=== PATIENT | male | born 1975 | race Caucasian/White ===

== ENCOUNTER 2019-03-12 10:52 | Emergency (ER) | payer OTHER, SELFPAY ==
[2019-03-12 11:08] VITALS: BP 141/90; PULSE 70; RESP 18; TEMP 36.1; O2SAT 99; BMI 25.4
--- NOTE | 2019-03-12 11:43 | ED.BACK ---
HPI - Back Pain/Injury <VITALY Mak - Last Filed: 03/12/19 13:33> General Chief Complaint: Back Pain/Injury Stated Complaint: back pain Time Seen by Provider: 03/12/19 11:25 Source: patient Mode of arrival: ambulatory Limitations: no limitations History of Present Illness HPI Narrative: The patient is a 44-year-old male former smoker with history of flank pain who presents with a chief complaint of right-sided low back pain. He has a history of right-sided flank pain, and has been worked up by her urologist for possible kidney stones. However no kidney stones have been found. He states that his back pain started while putting on his pants yesterday. He states he was digging holes in the ground the day before. He states that his pain is improved with positioning and rest, not constant. He had an ER physician friend, who is not his primary care provider prescribed him Flexeril as a favor. He took 1 dose of that yesterday along with 800 of ibuprofen and felt no relief. He has not taken anything today. He denies any neck pain or spinal pain. He denies any incontinence of bowel, incontinence of bladder numbness tingling or weakness. He denies any fevers, trauma or history of cancer. The patient denies any dysuria urgency or frequency or hematuria. Related Data Home Medications Medication Instructions Recorded Confirmed cyclobenzaprine 10 mg PO TID PRN 03/12/19 03/12/19 ibuprofen 1 dose PO PRN PRN 03/12/19 03/12/19 multivitamin 1 tab PO DAILY 03/12/19 03/12/19 Previous Rx's Medication Instructions Recorded hydrocodone-acetaminophen [[place]] 1 tab PO Q4-6H PRN #10 tab 03/12/19 ketorolac 10 mg PO TID PRN #14 tab 03/12/19 Allergies Allergy/AdvReac Type Severity Reaction Status Date / Time No Known Drug Allergies Allergy Verified 03/12/19 11:49 Review of Systems <VITALY Mak - Last Filed: 03/12/19 13:33> Review of Systems GENERAL: Denies chills, fatigue, malaise, fever, sweats. HEENT: Denies sinus pain, ear pain, sore throat, difficulty swallowing, dizziness. RESPIRATORY: Denies dyspnea, cough, wheezing, hemoptysis, sputum. CARDIOVASCULAR: Denies chest pain, palpitations, orthopnea, edema, GASTROINTESTINAL: Denies nausea, vomiting, abdominal pain, diarrhea, constipation, melena. : see HPI MUSCULOSKELETAL: See HPI SKIN: Denies rash, skin lesions, or other NEUROLOGIC: Denies weakness, headache, numbness, change in speech, confusion, seizures, incoordination. PSYCHIATRIC: No concerning psychosocial issues. 12 point review of systems is negative except for those stated above PFSH <Candace BALBIR De Anda- - Last Filed: 03/12/19 13:33> Social History Smoking Status: Former smoker Social History Smoking Status: Former smoker Exam <CandaceFARA Thomason - Last Filed: 03/12/19 13:33> Narrative Exam Narrative: GENERAL: This is a well-nourished, well-developed patient, appears uncomfortable moving HEAD: Atraumatic. Normocephalic. No temporal or scalp tenderness. EYES: Pupils equal round and reactive. Extraocular motions intact. No scleral icterus. No injection or drainage. ENT: Nose without bleeding, purulent drainage or septal hematoma. Throat without erythema, tonsillar hypertrophy or exudate. Uvula midline. Airway patent. NECK: Trachea midline. No JVD or lymphadenopathy. Supple, nontender, no meningeal signs. CARDIOVASCULAR: Regular rate and rhythm without murmurs, gallops, or rubs. RESPIRATORY: Clear to auscultation. Breath sounds equal bilaterally. No wheezes, rales, or rhonchi. No cough. No increased respiratory effort. No accessory muscle use. GASTROINTESTINAL: Abdomen soft, non-tender, nondistended. No hepato-splenomegaly, or palpable masses. No guarding. EXTREMITIES: No clubbing, cyanosis, or edema. No joint tenderness, effusion, or edema noted. BACK: Nontender without deformity or crepitance. No flank tenderness. No pain to C-spine T-spine or L-spine palpation. Pain to right lumbar paraspinal muscle palpation. NEURO: AOx3. Strength is equal upper and lower extremities bilaterally. No gross cranial nerve deficit. SKIN: No rash or erythema. Initial Vital Signs Initial Vital Signs: Vital Signs Temperature 97.0 F L 03/12/19 11:08 Pulse Rate 70 03/12/19 11:08 Respiratory Rate 18 03/12/19 11:08 Blood Pressure 141/90 H 03/12/19 11:08 Pulse Oximetry 99 03/12/19 11:08 <Bridgette Ortiz MD - Last Filed: 03/12/19 19:20> Initial Vital Signs Initial Vital Signs: Vital Signs Temperature 97.0 F L 03/12/19 11:08 Pulse Rate 70 03/12/19 11:08 Respiratory Rate 18 03/12/19 11:08 Blood Pressure 141/90 H 03/12/19 11:08 Pulse Oximetry 99 03/12/19 11:08 Course <BALBIR Mak-BC - Last Filed: 03/12/19 13:33> Course Narrative: At 11:50 a.m. I reviewed the patient's imaging reports from [facility]. He had a CT IVP with and without contrast was done at [facility], which illustrate no acute intra-abdominal process, no evidence of nephrolithiasis or hydronephrosis, and slight diffuse bladder wall thickening. Orders Ordered: ED Orders 03/12/19 12:12 Complete Blood Count AUTO DIFF Stat Comprehensive Metabolic Panel Stat 03/12/19 12:20 Urinalysis and Microscopic Stat Discontinued Medications Hydrocodone Bitart/Acetaminophen ([place] 5/325) 1 tab PO NOW ONE Stop: 03/12/19 12:41 Last Admin: 03/12/19 13:01 Dose: 1 tab Cyclobenzaprine HCl (Flexeril) 10 mg PO NOW ONE Stop: 03/12/19 11:36 Last Admin: 03/12/19 11:51 Dose: 10 mg Ketorolac Tromethamine (Toradol) 60 mg IM NOW ONE Stop: 03/12/19 11:36 Last Admin: 03/12/19 11:51 Dose: 60 mg Vital Signs - 8 hr 03/12/19 13:29 Temperature 98.0 F Pulse Rate 65 Blood Pressure [Right Arm] 127/85 Pulse Oximetry 100 <Bridgette Ortiz MD - Last Filed: 03/12/19 19:20> Orders Ordered: ED Orders 03/12/19 12:12 Complete Blood Count AUTO DIFF Stat Comprehensive Metabolic Panel Stat 03/12/19 12:20 Urinalysis and Microscopic Stat Discontinued Medications Hydrocodone Bitart/Acetaminophen ([place] 5/325) 1 tab PO NOW ONE Stop: 03/12/19 12:41 Last Admin: 03/12/19 13:01 Dose: 1 tab Cyclobenzaprine HCl (Flexeril) 10 mg PO NOW ONE Stop: 03/12/19 11:36 Last Admin: 03/12/19 11:51 Dose: 10 mg Ketorolac Tromethamine (Toradol) 60 mg IM NOW ONE Stop: 03/12/19 11:36 Last Admin: 03/12/19 11:51 Dose: 60 mg Vital Signs - 8 hr 03/12/19 13:29 Temperature 98.0 F Pulse Rate 65 Blood Pressure [Right Arm] 127/85 Pulse Oximetry 100 MDM - Back Pain/Injury <Candace De Anda, [employer]- - Last Filed: 03/12/19 13:33> Lab Data Result diagrams: 03/12/19 12:12 03/12/19 12:12 Lab Results 03/12/19 03/12/19 03/12/19 Range/Units 12:12 12:12 12:20 WBC 6.5 (4.5-11.0) X10^3/uL RBC 4.62 (4.5-5.9) X10^6/uL Hgb 15.4 (13.5-17.5) g/dL Hct 45.0 (41-53) % MCV 97.4 (80-100) fL MCH 33.4 (26-34) PG MCHC 34.3 (30-36) % RDW 12.6 (11.6-14.8) % Plt Count 225 (150-400) X10^3/uL Neut % (Auto) 65.7 (50-75) % Lymph % (Auto) 23.0 L (25-40) % [place] % (Auto) 9.3 (3-14) % Eos % (Auto) 1.3 L (2-4) % Baso % (Auto) 0.7 (0-2) % Neut # (Auto) 4300 (6363-8273) /uL Lymph # (Auto) 1500 (3622-6931) /uL [place] # (Auto) 600 (0-900) /uL Eos # (Auto) 100 (0-450) /uL Baso # (Auto) 0 (0-100) /uL Sodium 142 (137-145) mmol/L Potassium 4.0 (3.4-5.1) mmol/L Chloride 104 (98-107) mmol/L Carbon Dioxide 27 (22-32) mmol/L BUN 14 (9-20) mg/dL Creatinine 0.80 (0.66-1.25) mg/dL Estimated GFR > 60.0 (>60) mL/min BUN/Creatinine Ratio 17.5 (6-22) Glucose 96 (70-100) mg/dL Calcium 9.8 (8.4-10.2) mg/dL Total Bilirubin 0.8 (0.2-1.3) mg/dL AST 29 (17-59) IU/L ALT 17 L (21-72) IU/L Alkaline Phosphatase 49 (38-126) U/L Total Protein 8.3 H (6.3-8.2) g/dL Albumin 4.9 (3.5-5.0) g/dL Globulin 3.4 (1.7-4.1) g/dL Albumin/Globulin Ratio 1.4 (1.0-2.8) Urine Color Yellow Urine Appearance Clear Urine pH 6.0 (4.5-8.0) Ur Specific [place] 1.015 (1.000-1.035) Urine Protein Negative (Negative) Urine Glucose (UA) Negative (Negative) g/dL Urine Ketones Negative (NEGATIVE) Urine Occult Blood Negative (Negative) Urine Nitrate Negative (Negative) Urine Bilirubin Negative (NEGATIVE) Urine Urobilinogen 0.2 (0.2) E.U./dL Ur Leukocyte Esterase Negative (NEGATIVE) Urine RBC None seen (0-5/HPF) Urine WBC 0-1/hpf (0-5/HPF) Ur Squamous Epith Cells 0-1 /hpf (0-5/HPF) Amorphous Sediment 1+ Urine Bacteria None seen (None) Ur Culture Indicated? Cult not indicated MDM Narrative Medical decision making narrative: The patient is a 44-year-old male who presents with right flank pain after digging holes 2 days ago and pulling up his pants yesterday. He took a single dose of ibuprofen and Flexeril at home, which did not relieve his pain. He is also concerned about possible kidney stones. However he is able to be comfortable when he is lying flat on his back and his pain is worsened by movement. His kidney function is normal, he has no signs of nephrolithiasis in his urinalysis. His pain was greatly relieved by medications. We elected to not repeat his CT scan that was just recently performed. His pain significantly decreased of a single dose of Toradol, so I gave him a prescription and discussed not combine it with any other anti-inflammatories or NSAIDs. I also did give him a small prescription of [place], with understanding that can be constipating and sedating. Discussed not doing any driving or serious work on it. Patient declined a work note at this time. I did discuss at length follow up with PCP. This pain at this point this consistent with musculoskeletal pain. I discussed coming back to the ER for any incontinence of bowel, incontinence of bladder or numbness. Discussed at length follow up with PCP. Patient has no questions or concerns upon discharge. <Bridgette Ortiz MD - Last Filed: 03/12/19 19:20> Lab Data Lab Results 03/12/19 03/12/19 03/12/19 Range/Units 12:12 12:12 12:20 WBC 6.5 (4.5-11.0) X10^3/uL RBC 4.62 (4.5-5.9) X10^6/uL Hgb 15.4 (13.5-17.5) g/dL Hct 45.0 (41-53) % MCV 97.4 (80-100) fL MCH 33.4 (26-34) PG MCHC 34.3 (30-36) % RDW 12.6 (11.6-14.8) % Plt Count 225 (150-400) X10^3/uL Neut % (Auto) 65.7 (50-75) % Lymph % (Auto) 23.0 L (25-40) % [place] % (Auto) 9.3 (3-14) % Eos % (Auto) 1.3 L (2-4) % Baso % (Auto) 0.7 (0-2) % Neut # (Auto) 4300 (7194-3296) /uL Lymph # (Auto) 1500 (8853-7758) /uL [place] # (Auto) 600 (0-900) /uL Eos # (Auto) 100 (0-450) /uL Baso # (Auto) 0 (0-100) /uL Sodium 142 (137-145) mmol/L Potassium 4.0 (3.4-5.1) mmol/L Chloride 104 (98-107) mmol/L Carbon Dioxide 27 (22-32) mmol/L BUN 14 (9-20) mg/dL Creatinine 0.80 (0.66-1.25) mg/dL Estimated GFR > 60.0 (>60) mL/min BUN/Creatinine Ratio 17.5 (6-22) Glucose 96 (70-100) mg/dL Calcium 9.8 (8.4-10.2) mg/dL Total Bilirubin 0.8 (0.2-1.3) mg/dL AST 29 (17-59) IU/L ALT 17 L (21-72) IU/L Alkaline Phosphatase 49 (38-126) U/L Total Protein 8.3 H (6.3-8.2) g/dL Albumin 4.9 (3.5-5.0) g/dL Globulin 3.4 (1.7-4.1) g/dL Albumin/Globulin Ratio 1.4 (1.0-2.8) Urine Color Yellow Urine Appearance Clear Urine pH 6.0 (4.5-8.0) Ur Specific [place] 1.015 (1.000-1.035) Urine Protein Negative (Negative) Urine Glucose (UA) Negative (Negative) g/dL Urine Ketones Negative (NEGATIVE) Urine Occult Blood Negative (Negative) Urine Nitrate Negative (Negative) Urine Bilirubin Negative (NEGATIVE) Urine Urobilinogen 0.2 (0.2) E.U./dL Ur Leukocyte Esterase Negative (NEGATIVE) Urine RBC None seen (0-5/HPF) Urine WBC 0-1/hpf (0-5/HPF) Ur Squamous Epith Cells 0-1 /hpf (0-5/HPF) Amorphous Sediment 1+ Urine Bacteria None seen (None) Ur Culture Indicated? Cult not indicated Discharge Plan Departure Patient Disposition: Home Clinical Impression: Muscle spasm Strain of lumbar region Qualifiers: Encounter type: initial encounter Qualified Code(s): S39.012A - Strain of muscle, fascia and tendon of lower back, initial encounter Back pain Qualifiers: Back pain location: low back pain Chronicity: acute Back pain laterality: right Sciatica presence: without sciatica Qualified Code(s): M54.5 - Low back pain Discharge Date/Time: 03/12/19 13:43 Interventions: ED Discharge Assessment Last Done: 03/12/19 13:42 Activity Restrictions/Additional Instructions: Please follow up with your primary care provider in the next few days. Your lab work shows normal kidney function, your urine has no blood or signs of infection, and your white blood cell count is not elevated. This is all very reassuring. Please monitor for any acute changes such as incontinence of bowel, incontinence of bladder or numbness and be evaluated if these occur. Please use the medications as we discussed. Do not combine the Toradol/ketorolac with any NSAIDs such as ibuprofen or Aleve. Be aware that [place] can be constipating and sedating. Please come back to the emergency department for any acute concerns. Please follow up with your PCP as soon as possible Prescriptions: New hydrocodone-acetaminophen [[place]] 5-325 mg tablet 1 tab PO Q4-6H PRN (Reason: pain) Qty: 10 RF: 0 ketorolac 10 mg tablet 10 mg PO TID PRN (Reason: pain) Qty: 14 RF: 0 No Action multivitamin Tablet 1 tab PO DAILY RF: 0 cyclobenzaprine 10 mg Tablet 10 mg PO TID PRN (Reason: Spasms) RF: 0 ibuprofen 200 mg Tablet 1 dose PO PRN PRN (Reason: pain) RF: 0 Referrals: Keith Chang MD [Primary Care Provider] -
--- NOTE | 2019-03-12 11:47 | ED_ITS ---
HPI - Back Pain/Injury <VITALY Mak - Last Filed: 03/12/19 13:33> General Chief Complaint: Back Pain/Injury Stated Complaint: back pain Time Seen by Provider: 03/12/19 11:25 Source: patient Mode of arrival: ambulatory Limitations: no limitations History of Present Illness HPI Narrative: The patient is a 44-year-old male former smoker with history of flank pain who presents with a chief complaint of right-sided low back pain. He has a history of right-sided flank pain, and has been worked up by her urologist for possible kidney stones. However no kidney stones have been found. He states that his back pain started while putting on his pants yesterday. He states he was digging holes in the ground the day before. He states that his pain is improved with positioning and rest, not constant. He had an ER physician friend, who is not his primary care provider prescribed him Flexeril as a favor. He took 1 dose of that yesterday along with 800 of ibuprofen and felt no relief. He has not taken anything today. He denies any neck pain or spinal pain. He denies any incontinence of bowel, incontinence of bladder numbness tingling or weakness. He denies any fevers, trauma or history of cancer. The patient denies any dysuria urgency or frequency or hematuria. Related Data Home Medications Medication Instructions Recorded Confirmed cyclobenzaprine 10 mg PO TID PRN 03/12/19 03/12/19 ibuprofen 1 dose PO PRN PRN 03/12/19 03/12/19 multivitamin 1 tab PO DAILY 03/12/19 03/12/19 Previous Rx's Medication Instructions Recorded hydrocodone-acetaminophen [[place]] 1 tab PO Q4-6H PRN #10 tab 03/12/19 ketorolac 10 mg PO TID PRN #14 tab 03/12/19 Allergies Allergy/AdvReac Type Severity Reaction Status Date / Time No Known Drug Allergies Allergy Verified 03/12/19 11:49 Review of Systems <VITALY Mak - Last Filed: 03/12/19 13:33> Review of Systems GENERAL: Denies chills, fatigue, malaise, fever, sweats. HEENT: Denies sinus pain, ear pain, sore throat, difficulty swallowing, dizziness. RESPIRATORY: Denies dyspnea, cough, wheezing, hemoptysis, sputum. CARDIOVASCULAR: Denies chest pain, palpitations, orthopnea, edema, GASTROINTESTINAL: Denies nausea, vomiting, abdominal pain, diarrhea, constipation, melena. : see HPI MUSCULOSKELETAL: See HPI SKIN: Denies rash, skin lesions, or other NEUROLOGIC: Denies weakness, headache, numbness, change in speech, confusion, seizures, incoordination. PSYCHIATRIC: No concerning psychosocial issues. 12 point review of systems is negative except for those stated above PFSH <Candace BALBIR De Anda- - Last Filed: 03/12/19 13:33> Social History Smoking Status: Former smoker Social History Smoking Status: Former smoker Exam <CandaceFARA Thomason - Last Filed: 03/12/19 13:33> Narrative Exam Narrative: GENERAL: This is a well-nourished, well-developed patient, appears uncomfortable moving HEAD: Atraumatic. Normocephalic. No temporal or scalp tenderness. EYES: Pupils equal round and reactive. Extraocular motions intact. No scleral icterus. No injection or drainage. ENT: Nose without bleeding, purulent drainage or septal hematoma. Throat without erythema, tonsillar hypertrophy or exudate. Uvula midline. Airway patent. NECK: Trachea midline. No JVD or lymphadenopathy. Supple, nontender, no meningeal signs. CARDIOVASCULAR: Regular rate and rhythm without murmurs, gallops, or rubs. RESPIRATORY: Clear to auscultation. Breath sounds equal bilaterally. No wheezes, rales, or rhonchi. No cough. No increased respiratory effort. No accessory muscle use. GASTROINTESTINAL: Abdomen soft, non-tender, nondistended. No hepato- splenomegaly, or palpable masses. No guarding. EXTREMITIES: No clubbing, cyanosis, or edema. No joint tenderness, effusion, or edema noted. BACK: Nontender without deformity or crepitance. No flank tenderness. No pain to C-spine T-spine or L-spine palpation. Pain to right lumbar paraspinal muscle palpation. NEURO: AOx3. Strength is equal upper and lower extremities bilaterally. No gross cranial nerve deficit. SKIN: No rash or erythema. Initial Vital Signs Initial Vital Signs: Vital Signs Temperature 97.0 F L 03/12/19 11:08 Pulse Rate 70 03/12/19 11:08 Respiratory Rate 18 03/12/19 11:08 Blood Pressure 141/90 H 03/12/19 11:08 Pulse Oximetry 99 03/12/19 11:08 <Bridgette Ortiz MD - Last Filed: 03/12/19 19:20> Initial Vital Signs Initial Vital Signs: Vital Signs Temperature 97.0 F L 03/12/19 11:08 Pulse Rate 70 03/12/19 11:08 Respiratory Rate 18 03/12/19 11:08 Blood Pressure 141/90 H 03/12/19 11:08 Pulse Oximetry 99 03/12/19 11:08 Course <BALBIR Mak-BC - Last Filed: 03/12/19 13:33> Course Narrative: At 11:50 a.m. I reviewed the patient's imaging reports from [facility]. He had a CT IVP with and without contrast was done at [facility], which illustrate no acute intra-abdominal process, no evidence of nephrolithiasis or hydronephrosis, and slight diffuse bladder wall thickening. Orders Ordered: ED Orders 03/12/19 12:12 Complete Blood Count AUTO DIFF Stat Comprehensive Metabolic Panel Stat 03/12/19 12:20 Urinalysis and Microscopic Stat Discontinued Medications Hydrocodone Bitart/Acetaminophen ([place] 5/325) 1 tab PO NOW ONE Stop: 03/12/19 12:41 Last Admin: 03/12/19 13:01 Dose: 1 tab Cyclobenzaprine HCl (Flexeril) 10 mg PO NOW ONE Stop: 03/12/19 11:36 Last Admin: 03/12/19 11:51 Dose: 10 mg Ketorolac Tromethamine (Toradol) 60 mg IM NOW ONE Stop: 03/12/19 11:36 Last Admin: 03/12/19 11:51 Dose: 60 mg Vital Signs - 8 hr 03/12/19 13:29 Temperature 98.0 F Pulse Rate 65 Blood Pressure [Right Arm] 127/85 Pulse Oximetry 100 <Bridgette Ortiz MD - Last Filed: 03/12/19 19:20> Orders Ordered: ED Orders 03/12/19 12:12 Complete Blood Count AUTO DIFF Stat Comprehensive Metabolic Panel Stat 03/12/19 12:20 Urinalysis and Microscopic Stat Discontinued Medications Hydrocodone Bitart/Acetaminophen ([place] 5/325) 1 tab PO NOW ONE Stop: 03/12/19 12:41 Last Admin: 03/12/19 13:01 Dose: 1 tab Cyclobenzaprine HCl (Flexeril) 10 mg PO NOW ONE Stop: 03/12/19 11:36 Last Admin: 03/12/19 11:51 Dose: 10 mg Ketorolac Tromethamine (Toradol) 60 mg IM NOW ONE Stop: 03/12/19 11:36 Last Admin: 03/12/19 11:51 Dose: 60 mg Vital Signs - 8 hr 03/12/19 13:29 Temperature 98.0 F Pulse Rate 65 Blood Pressure [Right Arm] 127/85 Pulse Oximetry 100 MDM - Back Pain/Injury <Candace De Anda, [employer]CH[employer] ASSISTANT- - Last Filed: 03/12/19 13:33> Lab Data Result diagrams: 03/12/19 12:12 03/12/19 12:12 Lab Results 03/12/19 03/12/19 03/12/19 Range/Units 12:12 12:12 12:20 WBC 6.5 (4.5-11.0) X10^3/uL RBC 4.62 (4.5-5.9) X10^6/uL Hgb 15.4 (13.5-17.5) g/dL Hct 45.0 (41-53) % MCV 97.4 (80-100) fL MCH 33.4 (26-34) PG MCHC 34.3 (30-36) % RDW 12.6 (11.6-14.8) % Plt Count 225 (150-400) X10^3/uL Neut % (Auto) 65.7 (50-75) % Lymph % (Auto) 23.0 L (25-40) % [place] % (Auto) 9.3 (3-14) % Eos % (Auto) 1.3 L (2-4) % Baso % (Auto) 0.7 (0-2) % Neut # (Auto) 4300 (0915-5788) /uL Lymph # (Auto) 1500 (3843-6023) /uL [place] # (Auto) 600 (0-900) /uL Eos # (Auto) 100 (0-450) /uL Baso # (Auto) 0 (0-100) /uL Sodium 142 (137-145) mmol/L Potassium 4.0 (3.4-5.1) mmol/L Chloride 104 (98-107) mmol/L Carbon Dioxide 27 (22-32) mmol/L BUN 14 (9-20) mg/dL Creatinine 0.80 (0.66-1.25) mg/dL Estimated GFR > 60.0 (>60) mL/min BUN/Creatinine Ratio 17.5 (6-22) Glucose 96 (70-100) mg/dL Calcium 9.8 (8.4-10.2) mg/dL Total Bilirubin 0.8 (0.2-1.3) mg/dL AST 29 (17-59) IU/L ALT 17 L (21-72) IU/L Alkaline Phosphatase 49 (38-126) U/L Total Protein 8.3 H (6.3-8.2) g/dL Albumin 4.9 (3.5-5.0) g/dL Globulin 3.4 (1.7-4.1) g/dL Albumin/Globulin Ratio 1.4 (1.0-2.8) Urine Color Yellow Urine Appearance Clear Urine pH 6.0 (4.5-8.0) Ur Specific [place] 1.015 (1.000-1.035) Urine Protein Negative (Negative) Urine Glucose (UA) Negative (Negative) g/dL Urine Ketones Negative (NEGATIVE) Urine Occult Blood Negative (Negative) Urine Nitrate Negative (Negative) Urine Bilirubin Negative (NEGATIVE) Urine Urobilinogen 0.2 (0.2) E.U./dL Ur Leukocyte Esterase Negative (NEGATIVE) Urine RBC None seen (0-5/HPF) Urine WBC 0-1/hpf (0-5/HPF) Ur Squamous Epith Cells 0-1 /hpf (0-5/HPF) Amorphous Sediment 1+ Urine Bacteria None seen (None) Ur Culture Indicated? Cult not indicated MDM Narrative Medical decision making narrative: The patient is a 44-year-old male who presents with right flank pain after digging holes 2 days ago and pulling up his pants yesterday. He took a single dose of ibuprofen and Flexeril at home, which did not relieve his pain. He is also concerned about possible kidney stones. However he is able to be comfortable when he is lying flat on his back and his pain is worsened by movement. His kidney function is normal, he has no signs of nephrolithiasis in his urinalysis. His pain was greatly relieved by medications. We elected to not repeat his CT scan that was just recently performed. His pain significantly decreased of a single dose of Toradol, so I gave him a prescription and discussed not combine it with any other anti- inflammatories or NSAIDs. I also did give him a small prescription of [place], with understanding that can be constipating and sedating. Discussed not doing any driving or serious work on it. Patient declined a work note at this time. I did discuss at length follow up with PCP. This pain at this point this consistent with musculoskeletal pain. I discussed coming back to the ER for any incontinence of bowel, incontinence of bladder or numbness. Discussed at length follow up with PCP. Patient has no questions or concerns upon discharge. <Bridgette Ortiz MD - Last Filed: 03/12/19 19:20> Lab Data Lab Results 03/12/19 03/12/19 03/12/19 Range/Units 12:12 12:12 12:20 WBC 6.5 (4.5-11.0) X10^3/uL RBC 4.62 (4.5-5.9) X10^6/uL Hgb 15.4 (13.5-17.5) g/dL Hct 45.0 (41-53) % MCV 97.4 (80-100) fL MCH 33.4 (26-34) PG MCHC 34.3 (30-36) % RDW 12.6 (11.6-14.8) % Plt Count 225 (150-400) X10^3/uL Neut % (Auto) 65.7 (50-75) % Lymph % (Auto) 23.0 L (25-40) % [place] % (Auto) 9.3 (3-14) % Eos % (Auto) 1.3 L (2-4) % Baso % (Auto) 0.7 (0-2) % Neut # (Auto) 4300 (4250-4769) /uL Lymph # (Auto) 1500 (2605-0612) /uL [place] # (Auto) 600 (0-900) /uL Eos # (Auto) 100 (0-450) /uL Baso # (Auto) 0 (0-100) /uL Sodium 142 (137-145) mmol/L Potassium 4.0 (3.4-5.1) mmol/L Chloride 104 (98-107) mmol/L Carbon Dioxide 27 (22-32) mmol/L BUN 14 (9-20) mg/dL Creatinine 0.80 (0.66-1.25) mg/dL Estimated GFR > 60.0 (>60) mL/min BUN/Creatinine Ratio 17.5 (6-22) Glucose 96 (70-100) mg/dL Calcium 9.8 (8.4-10.2) mg/dL Total Bilirubin 0.8 (0.2-1.3) mg/dL AST 29 (17-59) IU/L ALT 17 L (21-72) IU/L Alkaline Phosphatase 49 (38-126) U/L Total Protein 8.3 H (6.3-8.2) g/dL Albumin 4.9 (3.5-5.0) g/dL Globulin 3.4 (1.7-4.1) g/dL Albumin/Globulin Ratio 1.4 (1.0-2.8) Urine Color Yellow Urine Appearance Clear Urine pH 6.0 (4.5-8.0) Ur Specific [place] 1.015 (1.000-1.035) Urine Protein Negative (Negative) Urine Glucose (UA) Negative (Negative) g/dL Urine Ketones Negative (NEGATIVE) Urine Occult Blood Negative (Negative) Urine Nitrate Negative (Negative) Urine Bilirubin Negative (NEGATIVE) Urine Urobilinogen 0.2 (0.2) E.U./dL Ur Leukocyte Esterase Negative (NEGATIVE) Urine RBC None seen (0-5/HPF) Urine WBC 0-1/hpf (0-5/HPF) Ur Squamous Epith Cells 0-1 /hpf (0-5/HPF) Amorphous Sediment 1+ Urine Bacteria None seen (None) Ur Culture Indicated? Cult not indicated Discharge Plan Departure Patient Disposition: Home Clinical Impression: Muscle spasm Strain of lumbar region Qualifiers: Encounter type: initial encounter Qualified Code(s): S39.012A - Strain of muscle, fascia and tendon of lower back, initial encounter Back pain Qualifiers: Back pain location: low back pain Chronicity: acute Back pain laterality: right Sciatica presence: without sciatica Qualified Code(s): M54.5 - Low back pain Discharge Date/Time: 03/12/19 13:43 Interventions: ED Discharge Assessment Last Done: 03/12/19 13:42 Activity Restrictions/Additional Instructions: Please follow up with your primary care provider in the next few days. Your lab work shows normal kidney function, your urine has no blood or signs of infection, and your white blood cell count is not elevated. This is all very reassuring. Please monitor for any acute changes such as incontinence of bowel, incontinence of bladder or numbness and be evaluated if these occur. Please use the medications as we discussed. Do not combine the Toradol/ketorolac with any NSAIDs such as ibuprofen or Aleve. Be aware that [place] can be constipating and sedating. Please come back to the emergency department for any acute concerns. Please follow up with your PCP as soon as possible Prescriptions: New hydrocodone-acetaminophen [[place]] 5-325 mg tablet 1 tab PO Q4-6H PRN (Reason: pain) Qty: 10 RF: 0 ketorolac 10 mg tablet 10 mg PO TID PRN (Reason: pain) Qty: 14 RF: 0 No Action multivitamin Tablet 1 tab PO DAILY RF: 0 cyclobenzaprine 10 mg Tablet 10 mg PO TID PRN (Reason: Spasms) RF: 0 ibuprofen 200 mg Tablet 1 dose PO PRN PRN (Reason: pain) RF: 0 Referrals: Keith Chang MD [Primary Care Provider] -
[2019-03-12] MEDS: CYCLOBENZAPRINE 10 MG TABLET PO (11:51)
[2019-03-12] MEDS: KETOROLAC 60 MG/2 ML VIAL IM (11:51)
[2019-03-12 12:23] LABS: Add Manual Diff / Slide Review NO; Basophils Absolute Auto 0 /uL (0-100); Basophils Percent Auto 0.7 % (0-2); Eosinophils Absolute Auto 100 /uL (0-450); Eosinophils Percent Auto 1.3 % (2-4); Hemoglobin 15.4 g/dL (13.5-17.5); Lymphocytes Absolute Auto 1500 /uL (1100-4500); Mean Corpuscular HGB Conc 34.3 % (30-36); Mean Corpuscular Hemoglobin 33.4 PG (26-34); Mean Corpuscular Volume 97.4 fL (80-100); Monocytes Absolute Auto 600 /uL (0-900); Monocytes Percent Auto 9.3 % (3-14); Neutrophils Absolute Auto 4300 /uL (1500-7000); Neutrophils Percent Auto 65.7 % (50-75); Platelet Count 225 X10^3/uL (150-400); Red Blood Cell Count 4.62 X10^6/uL (4.5-5.9); Red Cell Distribution Width 12.6 % (11.6-14.8); White Blood Cell Count 6.5 X10^3/uL (4.5-11.0)
[2019-03-12 12:30] LABS: Bacteria Urine None Seen; RBC Urine None Seen (0-5/HPF)
[2019-03-12 12:33] LABS: Appearance Urine UA CLEAR; Bilirubin Urine UA NEGATIVE (NEGATIVE); Color Urine UA YELLOW; Glucose Urine UA NEGATIVE (Negative); Ketones Urine UA NEGATIVE (NEGATIVE); Leukocyte Esterase Urine UA NEGATIVE (NEGATIVE); Nitrite Urine UA NEGATIVE (Negative); Occult Blood Urine UA NEGATIVE (Negative); Protein Urine UA NEGATIVE (Negative); Specific Gravity Urine UA 1.015 (1.000-1.035); Urobilinogen Urine UA 0.2 E.U./dL (0.2)
[2019-03-12 12:38] LABS: Alanine Aminotransferase 17 IU/L (21-72); Albumin 4.9 g/dL (3.5-5.0); Albumin Globulin Ratio 1.4 (1.0-2.8); Alkaline Phosphatase 49 U/L (38-126); Aspartate Aminotransferase 29 IU/L (17-59); BUN Creatinine Ratio 17.5 (6-22); Bilirubin Total 0.8 mg/dL (0.2-1.3); Blood Urea Nitrogen 14 mg/dL (9-20); Calcium 9.8 mg/dL (8.4-10.2); Carbon Dioxide 27 mmol/L (22-32); Chloride 104 mmol/L (98-107); Estimated Glomerular Filt Rate > 60.0 mL/min (>60); Globulin 3.4 g/dL (1.7-4.1); Glucose 96 mg/dL (70-100); HEMOLYSIS < 15 (0-50); Sodium 142 mmol/L (137-145); Total Protein 8.3 g/dL (6.3-8.2)
[2019-03-12 12:48] LABS: Amorphous Sediment Urine 1+; Culture Indicated Urine Cult Not Indicated; Squamous Epithelial Cell Urine 0-1 /HPF (0-5/HPF); WBC Urine 0-1/HPF (0-5/HPF)
[2019-03-12] MEDS: HYDROCODONE/ACET 5/325 TABLET 1 TAB PO (13:01)
[2019-03-12 13:29] VITALS: BP 127/85; PULSE 65; TEMP 36.7; O2SAT 100
== END 2019-03-12 13:43 | disposition home or self-care (01) ==
PROVIDERS: Emergency Provider Nurse Practitioner Family; PCP Specialist
DX: S39.012A Strain of muscle, fascia and tendon of lower back, initial encounter (principal)
CPT/HCPCS: 36415; 80053; 81001; 85025; 96372; 99283; J1885